=== PATIENT | female | born 1950 | race Caucasian/White ===

== ENCOUNTER 2019-03-23 11:34 | Emergency (ER) | payer MEDICARE, OTHER ==
[~2019-03-23 11:34] MED LIST: Sodium Chloride 0.9% 1,000 ML BAG ONE
[2019-03-23] MEDS ORDERED: Ketorolac Tromethamine 30 MG/ML VIAL ONE (12:04)
[2019-03-23 12:17] LABS: #Lymphocytes 0.6 thou/uL (1.20-3.40); #Monocytes 0.4 thou/uL (0.11-0.59); #Neutrophils 4.1 thou/uL (1.40-6.50); %Basophils 0.6 % (0.0-1.0); %Eosinophils 0.1 % (0.0-10.0); %Lymphocytes 12.2 % (21.0-51.0); %Monocytes 7.4 % (0.0-10.0); %Neutrophils 79.7 % (42.0-75.0); Hemoglobin 13.1 g/dL (12.0-16.0); Mean Corpuscular HGB CONC 31.3 g/dL (32.0-36.0); Mean Corpuscular Hemoglobin 33.9 pg (27.0-31.0); Mean Corpuscular Volume 108.3 fL (78.0-98.0); Mean Platelet Volume 9.4 fL (7.4-10.4); Platelet Count 76 thou/uL (130-400); RBC Distribution Width 13.7 % (11.5-14.5); Red Blood Cell (RBC) Count 3.87 mill/uL (4.20-5.40); White Blood Cell (WBC) Count 5.1 thou/uL (4.8-10.8)
[2019-03-23 12:30] LABS: ALT (SGPT) 54 U/L (8-55); AST (SGOT) 101 U/L (5-34); Albumin 4.4 g/dL (3.4-4.8); Alkaline Phosphatase 152 U/L (40-150); Anion Gap 49 mmol/L (10-20); BUN (Urea Nitrogen) 44 mg/dL (9.8-20.1); Bilirubin, Total 1.7 mg/dL (0.2-1.2); CK (CPK) 727 U/L (29-168); Calc. Creatinine Clearance 0 mL/min (70-130); Calcium 8.3 mg/dL (7.8-10.44); Chloride 78 mmol/L (98-107); Estimated GFR-MDRD 10; Globulin 3.2 g/dL (2.4-3.5); Glucose 101 mg/dL (80-115); Magnesium 1.2 mg/dL (1.6-2.6); Protein, Total 7.6 g/dL (6.0-8.3); Sodium 132 mmol/L (136-145)
[2019-03-23 12:34] LABS: Macrocytosis SLIGHT = 6-15 cells (100X) (0-5/hpf)
[2019-03-23 12:35] LABS: Platelet Morphology Comment Appears Decreased
[2019-03-23 12:52] LABS: Carbon Dioxide 9 mmol/L (23-31)
--- NOTE | 2019-03-23 12:53 | CT ---
Exam: Head CT without contrast HISTORY: Fall. Headache. COMPARISON: none FINDINGS: Hemorrhage: No intraparenchymal hemorrhage or extra-axial hematoma. Brain parenchyma: Cortical martinez-white matter differentiation is preserved. No mass effect or midline shift. Basilar cisterns are patent. Ventricular system: Ventricles and sulci are patent and symmetric. Calvarium: Intact. Sinuses and mastoid air cells: Adequate aeration. IMPRESSION: No intracranial post traumatic sequelae.
[2019-03-23] MEDS ORDERED: Magnesium Sulfate 2 GM/NS 0.9% 50 ML BAG ONE (12:54)
[2019-03-23] MEDS ORDERED: Ondansetron PF 4 MG/2 ML Vial ONE (12:54)
--- NOTE | 2019-03-23 13:00 | RAD ---
Exam: Chest one view HISTORY:Hypotension Comparison: 05/21/2014 FINDINGS: Cardiac silhouette: Normal Pulmonary vessels: Normal Costophrenic angles: Clear LUNGS: No masses or consolidation. Pneumothorax: None Osseous abnormalities: None IMPRESSION: No acute cardiopulmonary process.
[2019-03-23] MEDS ORDERED: Aspirin Chewable 81 MG TAB ONE (14:00)
== END 2019-03-23 14:10 | disposition short-term general hospital (02) ==
LOC: MADERS 11:34
DX: M62.82 Rhabdomyolysis (principal); N17.9 Acute kidney failure, unspecified; E83.42 Hypomagnesemia; E87.2 Acidosis; D69.6 Thrombocytopenia, unspecified; F41.9 Anxiety disorder, unspecified; F32.9 Major depressive disorder, single episode, unspecified; I10 Essential (primary) hypertension; Z79.899 Other long term (current) drug therapy
CPT/HCPCS: 70450; 71045; 80053; 82550; 82553; 83605; 83735; 83880; 84484; 85025; 87040; 93005; 96361; 96365; 96375; J1885; J2405; J3475; J7050

== ENCOUNTER 2020-06-05 10:37 | Outpatient (CLI) | payer MEDICARE, OTHER ==
--- NOTE | 2020-06-05 11:10 | RAD ---
EXAM: 3 views of the right ankle HISTORY: Ankle pain COMPARISON: None FINDINGS: 3 views of the right ankle shows a questionable ossific fragment adjacent to the cuboid bon e which could represent a small avulsion fracture. No other fractures are seen. Mild lateral soft tissue swelling is seen. No degenerative changes are present. IMPRESSION: Possible small avulsion fracture of the lateral midfoot
--- NOTE | 2020-06-05 11:22 | RAD ---
Exam:3 views right foot HISTORY: Pain. Sprain. COMPARISON: None FINDINGS: Soft tissue swelling of the lateral aspect of the right foot. No fracture, cortical irregul arity or periosteal reaction. Lisfranc alignment is maintained. IMPRESSION: Soft tissue swelling along the lateral aspect of the foot. No fracture.
== END 2020-06-05 10:38 | disposition home or self-care (01) ==
LOC: MADRAD 10:37
PROVIDERS: ATTEND Family Medicine
DX: S93.409A Sprain of unspecified ligament of unspecified ankle, initial encounter (principal); M79.671 Pain in right foot; M79.89 Other specified soft tissue disorders

== ENCOUNTER 2020-12-23 10:07 | Outpatient (CLI) | payer MEDICARE, OTHER ==
[2020-12-23 11:38] LABS: ALT (SGPT) 34 U/L (8-55); AST (SGOT) 49 U/L (5-34); Albumin 4.1 g/dL (3.4-4.8); Alkaline Phosphatase 101 U/L (40-110); Anion Gap 14 mmol/L (10-20); BUN (Urea Nitrogen) 10 mg/dL (9.8-20.1); Bilirubin, Total 0.5 mg/dL (0.2-1.2); Calc. Creatinine Clearance 0 mL/min (70-130); Carbon Dioxide 26 mmol/L (23-31); Cardiac Risk 2.7 (Less than 4.5); Chloride 106 mmol/L (98-107); Cholesterol 161 mg/dl (< 200 Desired); Globulin 2.9 g/dL (2.4-3.5); Glucose 112 mg/dL (80-115); HDL Cholesterol 59 mg/dL (>60 Neg Risk); LDL Cholesterol, Calculated 89 mg/dL; Potassium 4.1 mmol/L (3.5-5.1); Sodium 142 mmol/L (136-145); Triglycerides 66 mg/dL (Less than 150)
== END 2020-12-23 10:08 | disposition home or self-care (01) ==
LOC: MADLAB 10:07
PROVIDERS: ATTEND Family Medicine
DX: E03.9 Hypothyroidism, unspecified (principal); I10 Essential (primary) hypertension; R74.8 Abnormal levels of other serum enzymes
CPT/HCPCS: 36415; 80053; 80061; 84439; 84443